=== PATIENT | male | born 1955 | race Two or more races ===

== ENCOUNTER 2021-03-07 11:16 | Emergency (ER) | payer SELFPAY ==
[~2021-03-07] VITALS: Ht 162.6 cm; Wt 69.9 kg
[2021-03-07] MEDS ORDERED: LIDOCAINE-MPF 1%, 5ML INFIL ONE (12:00)
--- NOTE | 2021-03-07 15:31 | NUR ---
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
--- NOTE | 2021-03-07 15:56 | NUR ---
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
[2021-03-07 17:56] VITALS: BP 158/83
--- NOTE | 2021-03-07 17:57 | NUR ---
PT GIVEN SPLINT AND XYLOCAINE TO NUMB FINGER IN LEFT HAND. Patient given discharge instructions and they have confirmed that they understand the instructions. Patient ambulatory with steady gait. No quesions at time of discharge.
== END 2021-03-07 18:01 | disposition home or self-care (01) ==
LOC: ED 16:37
DX: S63.283A Dislocation of proximal interphalangeal joint of left middle finger, initial encounter (principal); X58.XXXA Exposure to other specified factors, initial encounter; Y93.89 Activity, other specified; Y92.009 Unspecified place in unspecified non-institutional (private) residence as the place of occurrence of the external cause; Y99.8 Other external cause status
CPT/HCPCS: 26770; 99284